=== PATIENT | male | born 1990 | race Native Hawaiian/Other Pacific Islander ===

== ENCOUNTER 2016-11-30 11:44 | Emergency (ER) | payer OTHER ==
[~2016-11-30] VITALS: Ht 167.6 cm; Wt 61.7 kg
[2016-11-30 14:44] VITALS: BP 116/72
== END 2016-11-30 14:45 | disposition home or self-care (01) ==
LOC: ER 11:44
DX: S61.411A Laceration without foreign body of right hand, initial encounter (principal); F10.99 Alcohol use, unspecified with unspecified alcohol-induced disorder; X99.0XXA Assault by sharp glass, initial encounter; Y93.89 Activity, other specified; Y92.89 Other specified places as the place of occurrence of the external cause; Y99.8 Other external cause status